=== PATIENT | male | born 1975 | race Caucasian/White ===

== ENCOUNTER 2024-09-02 20:35 | Emergency (ER) | payer BC ==
[~2024-09-02] VITALS: Ht 170.2 cm; Wt 83.9 kg
[2024-09-02] MEDS: SODIUM CHLORIDE 0.9% 1000ML 1,000 ML IV STA ×2 (00:50→22:01)
[2024-09-02 22:00] LABS: BASOPHILS % 0.2 % (0.0-1.0); HEMATOCRIT 42.8 % (38.2-49.6); HEMOGLOBIN 14.3 g/dL (14.0-18.0); LYMPHOCYTES # (AUTO) 1.5 (1.0-3.2); MEAN CORPUSCULAR HEMOGLOBIN 30.3 pg (28-32); MEAN CORPUSCULAR HGB CONC 33.4 g/dL (31-35); MEAN CORPUSCULAR VOLUME 90.7 fL (81-99); MONOCYTES # (AUTO) 1.5 (0.2-0.8); MONOCYTES % 7.9 % (4.4-11.3); NEUTROPHILS # (AUTO) 15.4 (2.1-6.9); NEUTROPHILS % 82.9 % (38.7-80.0); PLATELET COUNT 93 x10e3/uL (140-360); RED BLOOD COUNT 4.72 x10e6/uL (4.3-5.7); WHITE BLOOD COUNT 18.54 x10e3/uL (4.8-10.8)
[2024-09-02] MEDS: ONDANSETRON HCL INJ 2MG/ML 2ML 2 MG/ML VIAL IV STA (22:00)
[2024-09-02] MEDS: ACETAMINOPHEN 325 MG TAB PO STA (22:00)
[2024-09-02 22:22] LABS: ALBUMIN 3.3 g/dL (3.5-5.0); ALBUMIN/GLOBULIN RATIO 0.9 (0.8-2.0); ANION GAP 16.4 mmol/L (8-16); BILIRUBIN,TOTAL 1.4 mg/dL (0.2-1.2); CALCIUM 8.8 mg/dL (8.4-10.2); CREATININE, SERUM 1.32 mg/dL (0.72-1.25)
[2024-09-02 22:28] LABS: POTASSIUM 3.4 mmol/L (3.5-5.1); TROPONIN I 0.013 ng/mL (0-0.300)
[2024-09-02 22:50] LABS: BILIRUBIN,URINE SMALL (NEGATIVE); CLARITY,URINE HAZY (CLEAR); COLOR,URINE YELLOW (YELLOW); GLUCOSE, URINE NEGATIVE (NEGATIVE); KETONES,URINE TRACE (NEGATIVE); LEUKOCYTE ESTERASE ,URINE SMALL (NEGATIVE); NITRITE,URINE POSITIVE (NEGATIVE); PH,URINE 6 (5 - 7); PROTEIN,URINE DIPSTICK >=300 (NEGATIVE); URINE UROBILINOGEN 1 mg/dL (0.2 - 1); WBC,URINE (MAN) >50 /HPF (0-5)
[2024-09-02 22:51] LABS: BACTERIA,URINE MANY /HPF; EPITHELIAL CELLS,URINE FEW /LPF; MUCUS,URINE MODERATE (RARE)
[2024-09-02] MEDS ORDERED: IOPAMIDOL 370 MG/ML 100 ML INFUS..BTL INJ ONE (23:21)
[2024-09-02 23:45] VITALS: TEMP 98.7
[2024-09-03] MEDS: ACETAMINOPHEN 325 MG TAB PO STA (00:32)
[2024-09-03] MEDS ORDERED: FLOMAX0.4 MG PO (01:36)
[2024-09-03] MEDS ORDERED: CIPRO500 MG PO (01:36)
[2024-09-03] MEDS ORDERED: ONDANSETRON ODT4 MG PO (01:36)
[2024-09-03 01:45] VITALS: PULSE 73; RESP 16; O2SAT 100
[2024-09-04] MEDS ORDERED: CEFDINIR300 MG PO (16:34)
== END 2024-09-03 01:55 | disposition home or self-care (01) ==
LOC: ER 20:40
DX: R30.0 Dysuria (principal); N39.0 Urinary tract infection, site not specified; R11.2 Nausea with vomiting, unspecified; N40.0 Benign prostatic hyperplasia without lower urinary tract symptoms; R51.9 Headache, unspecified; R94.31 Abnormal electrocardiogram [ECG] [EKG]
CPT/HCPCS: 36415; 70450; 74177; 80053; 81001; 82550; 83605; 83690; 84484; 85025; 87040; 87071; 87086; 87186; 87205; 93005; 99284; J2405; J2543; J7030 ×2; Q9967